=== PATIENT | female | born 1975 | race Asian ===

== ENCOUNTER 2017-07-18 07:53 | Day surgery (SDC) | payer OTHER ==
[~2017-07-18] VITALS: Ht 160 cm; Wt 54.9 kg
[~2017-07-18 07:53] MED LIST: SODIUM CHLORIDE 0.9% 1000ML 1,000 ML IV ONE
[2017-07-18 09:15] VITALS: BP 99/49
[2017-07-18] MEDS ORDERED: PROPOFOL 10 MG/ML 20ML VIAL IV ONE (10:46)
[2017-07-18 11:02] VITALS: BP 93/70
== END 2017-07-18 11:35 | disposition home or self-care (01) ==
LOC: DAH 07:53 → ENDO 07:53
PROVIDERS: ATTEND Internal Medicine
DX: K31.7 Polyp of stomach and duodenum (principal); K22.8 Other specified diseases of esophagus; Z98.890 Other specified postprocedural states
CPT/HCPCS: 43239; 43251; 81025; A4606; J2704; J7030